=== PATIENT | female | born 1985 | race Caucasian/White ===

== ENCOUNTER 2021-05-07 12:48 | Emergency (ER) | payer OTHER ==
[2021-05-07 13:26] VITALS: BP 113/72; PULSE 79; TEMP 98.2; BMI 32.8
[2021-05-10 21:09] LABS: SARS-CoV-2 NAA Detected (Not Detected)
== END 2021-05-07 14:30 | disposition home or self-care (01) ==
LOC: JER 12:48
DX: B34.9 Viral infection, unspecified (principal)
CPT/HCPCS: 87804; 99283-25; C9803; U0003; U0005

== ENCOUNTER 2022-04-12 05:27 | Emergency (ER) | payer OTHER ==
[2022-04-12 05:57] VITALS: BP 135/79; PULSE 85; RESP 16; TEMP 97.7; BMI 35.4
[2022-04-12] MEDS ORDERED: FAMOTIDINE 20 MG/50 ML IVPB 20 MG/50 ML MG IVPB ONE ×2 (06:18→07:27)
[2022-04-12] MEDS ORDERED: ACETAMINOPHEN 1000 MG/100 ML BAG IVPB ONE (06:18)
[2022-04-12] MEDS ORDERED: ONDANSETRON 4 MG/2 ML VIAL IVPUSH ONE (06:18)
[2022-04-12] MEDS ORDERED: LACTATED RINGERS SOLUTION 1000 ML INFUS.BAG IV ONE (06:18)
[2022-04-12] MEDS ORDERED: ACETAMINOPHEN INJECTION 100 ML IVPB ONE (07:27)
[2022-04-12] MEDS ORDERED: ONDANSETRON 4 MG/2 ML VIAL ONE (07:27)
[2022-04-12 08:12] LABS: BASO % 0.4 % (0-2.0); HEMATOCRIT 33.6 % (32.4-45.2); HEMOGLOBIN 11.2 GM/dL (10.7-15.3); LYMPH % 28.2 % (8-40); MCH 26.3 pg (25.7-33.7); MCHC 33.4 g/dl (32.0-36.0); MEAN CELL VOLUME 78.9 fl (80-96); MEAN PLT VOLUME 8.4 fl (7.5-11.1); MONO % 8.8 % (3.8-10.2); NEUT % 61.6 % (42.8-82.8); PLATELET COUNT 319 10^3/uL (134-434); RBC 4.25 M/mm3 (3.60-5.2); RDW 15.3 % (11.6-15.6); WHITE BLOOD COUNT 7.3 K/mm3 (4.0-10.0)
[2022-04-12 08:38] LABS: CALCIUM 8.5 mg/dL (8.5-10.1)
[2022-04-12 08:39] LABS: ALBUMIN 3.4 g/dl (3.4-5.0); BLOOD UREA NITROGEN 12.3 mg/dL (7-18)
[2022-04-12 08:42] LABS: CREATININE 0.6 mg/dL (0.55-1.3)
[2022-04-12 08:43] LABS: BILIRUBIN,TOTAL 0.2 mg/dL (0.2-1); TOT PROT 7.6 g/dl (6.4-8.2)
== END 2022-04-12 11:07 | disposition home or self-care (01) ==
LOC: JER 05:27
PROC: 3E033GC Introduction of Other Therapeutic Substance into Peripheral Vein, Percutaneous Approach (ICD-10-PCS; principal; 2022-04-12)
DX: R19.7 Diarrhea, unspecified (principal); R11.10 Vomiting, unspecified
CPT/HCPCS: 0241U-QW; 36415; 74177-TC; 80053; 83690; 83735; 84703; 85025; 93005; 93010; 99285-25; Q9967

== ENCOUNTER 2022-06-16 16:21 | Inpatient (IN) | payer OTHER ==
[2022-06-16] MEDS ORDERED: LACTATED RINGERS SOLUTION 1000 ML INFUS.BAG IV ONE (18:33)
[2022-06-16] MEDS ORDERED: MAG HYDROX/AL HYDROX/SIMETH 30 ML UNIT-DOSE CUP PO ONE (18:33)
[2022-06-16] MEDS ORDERED: ACETAMINOPHEN 1000 MG/100 ML BAG IVPB ONE (18:33)
[2022-06-16] MEDS ORDERED: FAMOTIDINE 20 MG/50 ML IVPB 20 MG/50 ML MG IVPB ONE ×2 (18:33→18:56)
[2022-06-16] MEDS ORDERED: MAG HYDROX/AL HYDROX/SIMETH 30 ML UNIT-DOSE CUP ONE (18:56)
[2022-06-16] MEDS ORDERED: ACETAMINOPHEN INJECTION 100 ML IVPB ONE (18:56)
[2022-06-16 19:23] LABS: BASO % 0.5 % (0-2.0); EOS % 3.4 % (0-4.5); EPI CELLS 4 /uL (0-25.1); HEMATOCRIT 33.4 % (32.4-45.2); HYALINE CASTS 190 /uL (0-3.1); LYMPH % 26.3 % (8-40); MCH 26.1 pg (25.7-33.7); MCHC 32.9 g/dl (32.0-36.0); MEAN CELL VOLUME 79.4 fl (80-96); MEAN PLT VOLUME 8.3 fl (7.5-11.1); MONO % 6.2 % (3.8-10.2); NEUT % 63.6 % (42.8-82.8); PLATELET COUNT 346 10^3/uL (134-434); RBC 4.21 M/mm3 (3.60-5.2); RDW 15.8 % (11.6-15.6); URINE APPEARANCE CLEAR; URINE BACTERIA 1678 /uL (0-1359); URINE BILIRUBIN NEGATIVE (NEGATIVE); URINE COLOR YELLOW; URINE GLUCOSE (UA) NEGATIVE (NEGATIVE); URINE KETONE NEGATIVE (NEGATIVE); URINE LEUK ESTERASE 3+ (NEGATIVE); URINE NITRITE NEGATIVE (NEGATIVE); URINE PROTEIN TRACE (NEGATIVE); URINE RBC 16 /uL (0-23.9); URINE UROBILINOGEN 0.2 mg/dL (0.2-1.0); URINE WBC 318 /uL (0-25.8); WHITE BLOOD COUNT 10.9 K/mm3 (4.0-10.0)
[2022-06-16 19:32] LABS: INR 1.03 (0.83-1.09)
[2022-06-16 19:35] LABS: ACTIVATED PTT 34.4 SECONDS (25.2-36.5)
[2022-06-16 19:51] LABS: ALBUMIN 3.7 g/dl (3.4-5.0); BLOOD UREA NITROGEN 13.8 mg/dL (7-18); CALCIUM 9.3 mg/dL (8.5-10.1)
[2022-06-16 19:54] LABS: CREATININE 0.5 mg/dL (0.55-1.3)
[2022-06-16 19:56] LABS: BILIRUBIN,TOTAL 0.2 mg/dL (0.2-1); TOT PROT 7.6 g/dl (6.4-8.2)
[2022-06-16] MEDS ORDERED: PIPERACILLIN/TAZOB 4.5 GM 4.5 GM/100 ML BAG IVPB ONE (22:44)
[2022-06-16] MEDS ORDERED: morphine CARPU-JECT 4 MG/1 ML DISP.SYRIN IVPUSH ONE (22:47)
[2022-06-16] MEDS ORDERED: morphine SULFATE 4 MG/ML VIAL ONE (22:50)
[2022-06-16] MEDS ORDERED: ACETAMINOPHEN 1000 MG/100 ML BAG IVPB PRN (23:41)
[2022-06-16] MEDS ORDERED: CEFTRIAXONE 1 GM in DEXTROSE 5%-WATER - 50 ML IVPB ONE (23:42)
[2022-06-16] MEDS ORDERED: CEFTRIAXONE 1 GM/50 ML BAG ONE (23:46)
[2022-06-17] MEDS: SODIUM CHLORIDE 1,000 ML IV SCH ×2 (00:23→09:26)
[2022-06-17] MEDS ORDERED: ONDANSETRON 4 MG/2 ML VIAL IVPUSH ONE ×2 (00:39→00:46)
[2022-06-17] MEDS ORDERED: ONDANSETRON 4 MG/2 ML VIAL ONE ×2 (00:40→14:34)
[2022-06-17] MEDS: PIPERACILLIN/TAZOB 3.375 GM 3.375 GM in DEXTROSE 5%-WATER - 50 ML IVPB SCH ×2 (02:43→09:23)
[2022-06-17] MEDS ORDERED: PIPERACILLIN/TAZOB 3.375 GM 3.375 GM in DEXTROSE 5%-WATER - 50 ML IVPB SCH (03:00)
[2022-06-17] MEDS ORDERED: PIPERACILLIN/TAZOB 2.25 GM 2.25 GM in DEXTROSE 5%-WATER - 50 ML IVPB SCH (03:00)
[2022-06-17 03:31] VITALS: BMI 43.4
[2022-06-17] MEDS ORDERED: ONDANSETRON 4 MG/2 ML VIAL IVPUSH PRN ×3 (07:18→16:52)
[2022-06-17 09:08] LABS: BASO % 0.6 % (0-2.0); EOS % 2.4 % (0-4.5); HEMATOCRIT 30.7 % (32.4-45.2); HEMOGLOBIN 10.2 GM/dL (10.7-15.3); LYMPH % 25.8 % (8-40); MCH 26.4 pg (25.7-33.7); MCHC 33.4 g/dl (32.0-36.0); MEAN CELL VOLUME 79.2 fl (80-96); MEAN PLT VOLUME 8.3 fl (7.5-11.1); NEUT % 63.2 % (42.8-82.8); PLATELET COUNT 293 10^3/uL (134-434); RBC 3.88 M/mm3 (3.60-5.2); RDW 15.5 % (11.6-15.6); WHITE BLOOD COUNT 8.7 K/mm3 (4.0-10.0)
[2022-06-17 09:18] LABS: INR 1.12 (0.83-1.09)
[2022-06-17 09:35] LABS: ALBUMIN 3.2 g/dl (3.4-5.0); CALCIUM 8.5 mg/dL (8.5-10.1); MAGNESIUM 2.4 mg/dL (1.8-2.4)
[2022-06-17 09:38] LABS: CREATININE 0.6 mg/dL (0.55-1.3); PHOSPHOROUS 3.5 mg/dL (2.5-4.9)
[2022-06-17 09:40] LABS: BILIRUBIN,TOTAL 0.4 mg/dL (0.2-1); TOT PROT 6.6 g/dl (6.4-8.2)
[2022-06-17] MEDS ORDERED: PROPOFOL 20 ML ONE (13:48)
[2022-06-17] MEDS ORDERED: LIDOCAINE HCL 2% 100 MG/5 ML DISP.SYRIN ONE (13:48)
[2022-06-17] MEDS ORDERED: ROCURONIUM BROMIDE 50 MG/5 ML SYRINGE ONE ×2 (13:49→15:13)
[2022-06-17] MEDS ORDERED: MIDAZOLAM HCL 2 MG/2 ML SINGLE DOSE VIAL ONE (13:49)
[2022-06-17] MEDS ORDERED: SUCCINYLCHOLINE CHLORIDE 200 MG/10 ML SYRINGE ONE (13:49)
[2022-06-17] MEDS ORDERED: BUPIVACAINE HCL/PF 0.5% (5MG/ML) 10 ML VIAL ONE (14:03)
[2022-06-17] MEDS ORDERED: DEXAMETHASONE SOD PHOSPHATE 4 MG/1 ML VIAL ONE (14:34)
[2022-06-17] MEDS ORDERED: BUPIVACAINE HCL/PF 0.5% (5MG/ML) 10 ML VIAL IJ ONE (14:43)
[2022-06-17] MEDS ORDERED: KETOROLAC TROMETHAMINE 30 MG/1 ML VIAL ONE (15:29)
[2022-06-17] MEDS ORDERED: oxyCODONE HCL 5 MG TABLET PO PRN (16:03)
[2022-06-17] MEDS ORDERED: PROMETHAZINE HCL 25 MG/1 ML VIAL IVPB PRN (16:08)
[2022-06-17] MEDS ORDERED: SODIUM CHLORIDE 1,000 ML IV SCH (16:15)
[2022-06-17] MEDS ORDERED: ACETAMINOPHEN 1000 MG/100 ML BAG IVPB SCH (16:15)
[2022-06-17] MEDS: LACTATED RINGERS SOLUTION 1,000 ML IV SCH (17:35)
[2022-06-17] MEDS ORDERED: AMPICILLIN NA/SULBACTAM NA 1.5 GM in SODIUM CHLORIDE 100 ML IVPB SCH (18:00)
[2022-06-17] MEDS: ACETAMINOPHEN 1000 MG/100 ML BAG IVPB PRN (20:00)
[2022-06-18] MEDS: LACTATED RINGERS SOLUTION 1,000 ML IV SCH (06:55)
[2022-06-18] MEDS: ACETAMINOPHEN 1000 MG/100 ML BAG IVPB PRN (07:34)
[2022-06-18 09:29] LABS: BASO % 0.2 % (0-2.0); EOS % 0.2 % (0-4.5); HEMATOCRIT 29.9 % (32.4-45.2); HEMOGLOBIN 9.9 GM/dL (10.7-15.3); MCH 26.1 pg (25.7-33.7); MCHC 32.9 g/dl (32.0-36.0); MEAN CELL VOLUME 79.4 fl (80-96); MEAN PLT VOLUME 8.4 fl (7.5-11.1); MONO % 7.7 % (3.8-10.2); NEUT % 70.9 % (42.8-82.8); PLATELET COUNT 309 10^3/uL (134-434); RBC 3.77 M/mm3 (3.60-5.2); RDW 15.8 % (11.6-15.6); WHITE BLOOD COUNT 12.9 K/mm3 (4.0-10.0)
[2022-06-18 09:54] LABS: ALBUMIN 3.1 g/dl (3.4-5.0)
[2022-06-18 09:57] LABS: BILIRUBIN,DIRECT 0.1 mg/dL (0.0-0.2)
[2022-06-18 09:58] LABS: BILIRUBIN,TOTAL 0.4 mg/dL (0.2-1); TOT PROT 6.5 g/dl (6.4-8.2)
[2022-06-19 06:53] VITALS: RESP 18
[2022-06-19 10:47] LABS: HEMATOCRIT 32.4 % (32.4-45.2); HEMOGLOBIN 10.6 GM/dL (10.7-15.3); MCHC 32.8 g/dl (32.0-36.0); MEAN CELL VOLUME 79.2 fl (80-96); MEAN PLT VOLUME 8.7 fl (7.5-11.1); PLATELET COUNT 334 10^3/uL (134-434); RDW 15.6 % (11.6-15.6); WHITE BLOOD COUNT 11.2 K/mm3 (4.0-10.0)
[2022-06-19 10:51] LABS: ALBUMIN 3.4 g/dl (3.4-5.0); CALCIUM 8.4 mg/dL (8.5-10.1)
[2022-06-19 10:52] LABS: BLOOD UREA NITROGEN 8.5 mg/dL (7-18)
[2022-06-19 10:54] LABS: CREATININE 0.5 mg/dL (0.55-1.3)
[2022-06-19 10:56] LABS: BILIRUBIN,TOTAL 0.4 mg/dL (0.2-1); TOT PROT 6.9 g/dl (6.4-8.2)
[2022-06-19 13:56] VITALS: BP 106/61; PULSE 94; TEMP 99.3
== END 2022-06-19 18:25 | disposition home or self-care (01) | DRG 263 ==
LOC: JER 16:21 → JERBED 06-17 00:46 → J6S 06-17 02:08
PROVIDERS: ADMIT Internal Medicine; ATTEND Internal Medicine
PROC: 0FT44ZZ Resection of Gallbladder, Percutaneous Endoscopic Approach (ICD-10-PCS; principal; 2022-06-17 13:00)
DX: K80.00 Calculus of gallbladder with acute cholecystitis without obstruction (principal); R73.9 Hyperglycemia, unspecified; E66.9 Obesity, unspecified; Z68.41 Body mass index [BMI] 40.0-44.9, adult; D64.9 Anemia, unspecified; N39.0 Urinary tract infection, site not specified
CPT/HCPCS: 0241U-QW; 36415; 71046-TC-FY; 76705-TC; 80053; 80076; 81003; 83036; 83690; 83735; 84100; 84484; 84703; 85025; 85027; 85610; 85730; 86850; 86900; 86901; 87086; 88304-TC; 93005; 93010; 94760; 99285-25

== ENCOUNTER 2022-09-28 14:23 | Emergency (ER) | payer OTHER ==
[2022-09-28 14:37] VITALS: BP 137/80; PULSE 103; RESP 16; TEMP 98; BMI 41.5
[2022-09-28] MEDS ORDERED: ACETAMINOPHEN 1000 MG/100 ML BAG IVPB ONE (15:47)
[2022-09-28] MEDS ORDERED: ACETAMINOPHEN INJECTION 100 ML IVPB ONE (15:52)
[2022-09-28 16:11] LABS: BASO % 0.9 % (0-2.0); EOS % 1.3 % (0-4.5); HEMATOCRIT 34.2 % (32.4-45.2); HEMOGLOBIN 11.3 GM/dL (10.7-15.3); MCH 25.9 pg (25.7-33.7); MCHC 32.9 g/dl (32.0-36.0); MEAN CELL VOLUME 78.9 fl (80-96); MEAN PLT VOLUME 8.4 fl (7.5-11.1); MONO % 10.7 % (3.8-10.2); NEUT % 69.1 % (42.8-82.8); PLATELET COUNT 330 10^3/uL (134-434); RBC 4.34 M/mm3 (3.60-5.2); RDW 16.2 % (11.6-15.6); WHITE BLOOD COUNT 7.5 K/mm3 (4.0-10.0)
[2022-09-28 16:21] LABS: ACTIVATED PTT 35.3 SECONDS (25.2-36.5); INR 1.11 (0.83-1.09); PROTHROMBIN TIME (PATIENT) 12.9 SEC (9.7-13.0)
[2022-09-28 17:21] LABS: POTASSIUM 3.9 mmol/L (3.5-5.1)
[2022-09-28 17:22] LABS: ALBUMIN 3.7 g/dl (3.4-5.0); CALCIUM 9.2 mg/dL (8.5-10.1)
[2022-09-28 17:23] LABS: BLOOD UREA NITROGEN 12.6 mg/dL (7-18)
[2022-09-28 17:25] LABS: CREATININE 0.7 mg/dL (0.55-1.3)
[2022-09-28 17:28] LABS: BILIRUBIN,TOTAL 0.2 mg/dL (0.2-1); TOT PROT 7.6 g/dl (6.4-8.2)
[2022-09-28] MEDS ORDERED: predniSONE 20 MG TABLET (UD) PO ONE (20:30)
[2022-09-28] MEDS ORDERED: predniSONE 20 MG TABLET (UD) ONE (20:31)
== END 2022-09-28 20:38 | disposition home or self-care (01) ==
LOC: JERFT 14:23 → JER 14:23 → JERFT 20:38
PROC: 3E033NZ Introduction of Analgesics, Hypnotics, Sedatives into Peripheral Vein, Percutaneous Approach (ICD-10-PCS; principal; 2022-09-28)
DX: M54.2 Cervicalgia (principal); M54.6 Pain in thoracic spine; M79.602 Pain in left arm; M79.601 Pain in right arm; M25.541 Pain in joints of right hand; M25.542 Pain in joints of left hand
CPT/HCPCS: 36415; 72125-TC; 72128-TC; 80053; 84703; 85025; 85610; 85730; 86850; 86900; 86901; 99284-25

== ENCOUNTER 2022-12-09 18:07 | Emergency (ER) | payer OTHER ==
[2022-12-09 18:16] VITALS: BP 128/83; PULSE 85; RESP 20; TEMP 98.9; BMI 34.9
[2022-12-09] MEDS ORDERED: SODIUM CHLORIDE 0.9% 500 ML INFUS.BAG IV ONE (18:48)
[2022-12-09] MEDS ORDERED: ACETAMINOPHEN 1000 MG/100 ML BAG IVPB ONE (18:48)
[2022-12-09] MEDS ORDERED: METOCLOPRAMIDE HCL INJECTION 10 MG/2 ML VIAL IVPUSH ONE (18:49)
[2022-12-09] MEDS ORDERED: ACETAMINOPHEN INJECTION 100 ML IVPB ONE (18:59)
[2022-12-09] MEDS ORDERED: METOCLOPRAMIDE HCL INJECTION 10 MG/2 ML VIAL ONE (18:59)
== END 2022-12-09 21:08 | disposition home or self-care (01) ==
LOC: JER 18:07
PROC: 3E033NZ Introduction of Analgesics, Hypnotics, Sedatives into Peripheral Vein, Percutaneous Approach (ICD-10-PCS; principal; 2022-12-09)
PROC: 3E033GC Introduction of Other Therapeutic Substance into Peripheral Vein, Percutaneous Approach (ICD-10-PCS; 2022-12-09)
DX: R51.9 Headache, unspecified (principal)
CPT/HCPCS: 99284-25

== ENCOUNTER 2024-03-30 05:57 | Inpatient (IN) | payer OTHER ==
[2024-03-30] MEDS ORDERED: LIDOCAINE HCL 4% TOPICAL SOLN (50 ML/BOTTLE) MM ONE (06:18)
[2024-03-30] MEDS: ACETAMINOPHEN 325 MG TABLET (FP) PO ONE ×2 (06:24→06:36)
[2024-03-30] MEDS ORDERED: ONDANSETRON *ODT* 4 MG TABLET ONE (06:25)
[2024-03-30] MEDS: ONDANSETRON *ODT* 4 MG TABLET SL ONE (06:27)
[2024-03-30] MEDS ORDERED: LIDOCAINE 5% TOPICAL PATCH ONE (06:29)
[2024-03-30] MEDS ORDERED: METHOCARBAMOL 500 MG TABLET ONE (06:29)
[2024-03-30] MEDS ORDERED: ACETAMINOPHEN 325 MG TABLET (FP) ONE (06:29)
[2024-03-30] MEDS: METHOCARBAMOL 500 MG TABLET PO ONE (06:36)
[2024-03-30] MEDS: LIDOCAINE 5% TOPICAL PATCH TP ONE (06:36)
[2024-03-30] MEDS ORDERED: KETOROLAC TROMETHAMINE 30 MG/1 ML VIAL ONE (08:10)
[2024-03-30] MEDS ORDERED: diazePAM 5 MG TABLET ONE (08:10)
[2024-03-30] MEDS: KETOROLAC TROMETHAMINE 30 MG/1 ML VIAL IM ONE (08:20)
[2024-03-30] MEDS: diazePAM 5 MG TABLET PO ONE (08:21)
[2024-03-30 09:38] LABS: BASO % 0.4 % (0-2.0); EOS % 0.6 % (0-4.5); HEMATOCRIT 34.9 % (32.4-45.2); HEMOGLOBIN 11.5 GM/dL (10.7-15.3); LYMPH % 23.7 % (8-40); MCH 26.4 pg (25.7-33.7); MEAN CELL VOLUME 79.9 fl (80-96); MEAN PLT VOLUME 8.2 fl (7.5-11.1); MONO % 6.2 % (3.8-10.2); NEUT % 69.1 % (42.8-82.8); PLATELET COUNT 314 10^3/uL (134-434); RBC 4.37 M/mm3 (3.60-5.2); RDW 15.5 % (11.6-15.6)
[2024-03-30] MEDS ORDERED: morphine SULFATE 4 MG/ML VIAL ONE (09:39)
[2024-03-30 09:47] LABS: INR 1.01 (0.83-1.09); PROTHROMBIN TIME (PATIENT) 11.4 SEC (9.7-13.0)
[2024-03-30 09:49] LABS: HCG,QUALITATIVE URINE Negative; URINE APPEARANCE CLEAR; URINE BILIRUBIN NEGATIVE (NEGATIVE); URINE COLOR YELLOW; URINE GLUCOSE (UA) NEGATIVE (NEGATIVE); URINE KETONE NEGATIVE (NEGATIVE); URINE LEUK ESTERASE 1+ (NEGATIVE); URINE NITRITE NEGATIVE (NEGATIVE); URINE PROTEIN NEGATIVE (NEGATIVE); URINE UROBILINOGEN 0.2 mg/dL (0.2-1.0)
[2024-03-30] MEDS: morphine CARPU-JECT 4 MG/1 ML DISP.SYRIN IVPUSH ONE (09:49)
[2024-03-30 09:50] LABS: ACTIVATED PTT 31.6 SECONDS (25.2-36.5)
[2024-03-30 10:02] LABS: POTASSIUM 4.4 mmol/L (3.5-5.1)
[2024-03-30 10:05] LABS: ALBUMIN 3.7 g/dl (3.4-5.0); CALCIUM 9.3 mg/dL (8.5-10.1)
[2024-03-30 10:06] LABS: BLOOD UREA NITROGEN 12.2 mg/dL (7-18); MAGNESIUM 2.1 mg/dL (1.8-2.4)
[2024-03-30 10:09] LABS: CREATININE 0.7 mg/dL (0.55-1.3)
[2024-03-30 10:10] LABS: BILIRUBIN,TOTAL 0.3 mg/dL (0.2-1); TOT PROT 7.6 g/dl (6.4-8.2)
[2024-03-30 10:22] LABS: EPI CELLS 15 /uL (0-25.1); HYALINE CASTS 0 /uL (0-3.1); URINE BACTERIA 79 /uL (0-1359); URINE RBC 25 /uL (0-23.9); URINE WBC 32 /uL (0-25.8); YEAST NONE SEEN (NEGATIVE)
[2024-03-30 14:28] VITALS: BMI 43.9
[2024-03-30 17:16] VITALS: RESP 18
[2024-03-30] MEDS: ENOXAPARIN NA (PORCINE) 40 MG/0.4 ML DISP.SYRIN SQ SCH (21:25)
[2024-03-31] MEDS: ACETAMINOPHEN 1000 MG/100 ML BAG IVPB PRN (16:08)
[2024-03-31] MEDS: SENNOSIDES 8.8 MG/5 ML SYRUP PO SCH (21:38)
[2024-04-01 07:35] VITALS: TEMP 98.1
[2024-04-01] MEDS: ACETAMINOPHEN 500 MG TABLET (FP) PO SCH (09:50)
[2024-04-01] MEDS: LIDOCAINE 4% PATCH TP SCH (09:51)
[2024-04-01] MEDS: CYCLOBENZAPRINE HCL 5 MG TABLET PO SCH (14:02)
[2024-04-01] MEDS: KETOROLAC TROMETHAMINE 30 MG/1 ML VIAL IVPUSH SCH (14:02)
[2024-04-01 16:05] VITALS: BP 125/77; PULSE 92
[2024-04-01] MEDS ORDERED: LIDOCAINE PATCH REMOVAL MC SCH (22:00)
== END 2024-04-01 16:40 | disposition home or self-care (01) | DRG 347 ==
LOC: JER 05:57 → JERBED 09:51 → J7W 13:34 → OBSVTOIN 03-31 10:43 → J7W 04-01 09:45
PROVIDERS: ADMIT Internal Medicine
DX: M54.41 Lumbago with sciatica, right side (principal); Z68.41 Body mass index [BMI] 40.0-44.9, adult; E66.9 Obesity, unspecified
CPT/HCPCS: 36415; 74176-TC; 80053; 81003; 83735; 84703; 85025; 85610; 85730; 87086; 93005; 93010; 97116-GP; 97161-GP; 99285-25; G0378; J0131; Q0162